=== PATIENT | male | born 1975 | race Caucasian/White ===

== ENCOUNTER 2019-09-11 17:53 | Emergency (ER) | payer MEDICAID ==
[~2019-09-11] VITALS: Ht 167.6 cm; Wt 66.2 kg
[2019-09-11 18:11] VITALS: Ht 167.6 cm; Wt 66.2 kg
[2019-09-11 19:07] LABS: BASOPHIL % 0.1 % (0-2); PLATELET COUNT 309 x10^3mcL (130-400); RED CELL DISTRIBUTION WIDTH 12.9 % (11.5-14.5)
[2019-09-11 19:20] LABS: CALCIUM 7.8 mg/dL (8.5-10.1); CARBON DIOXIDE 24.5 mmol/L (21-32); CHLORIDE SERUM 108 mmol/L (98-107); CREATININE SERUM 0.7 mg/dL (0.7-1.3); GFR1 > 60 mL/min; GLUCOSE SERUM 112 mg/dL (74-106); POTASSIUM SERUM 3.2 mmol/L (3.5-5.1); SODIUM SERUM 146 mmol/L (136-145)
[2019-09-11 19:25] LABS: ALBUMIN 4.1 g/dL (3.4-5.0); ALKALINE PHOSPHATASE 43 U/L (46-116); ALT/SGPT 42 U/L (16-63); BILIRUBIN TOTAL 0.2 mg/dL (0.20-1.00); TOTAL PROTEIN, SERUM 7.6 g/dL (6.4-8.2)
[2019-09-11 20:06] VITALS: BP 119/75
[2019-09-11 20:16] LABS: AST/SGOT 23 U/L (15-37)
== END 2019-09-11 20:06 | disposition home or self-care (01) ==
LOC: ED 17:53
PROVIDERS: Emergency Medicine
DX: R00.2 Palpitations (principal); R20.0 Anesthesia of skin
CPT/HCPCS: Q0092